=== PATIENT | female | born 1980 | race Caucasian/White ===

== ENCOUNTER 2018-06-13 09:07 | Emergency (ER) | payer MEDICAID ==
[~2018-06-13] VITALS: Ht 160 cm; Wt 67.7 kg
[~2018-06-13 09:07] MED LIST: PREN-129 PO
[2018-06-13] MEDS ORDERED: ibuprofen tablet 400 MG TABLET PO ONE (09:55)
[2018-06-13] MEDS ORDERED: LIDOcaine 1% w/epiNEPHrine 1:200,000 30ml vial IM ONE (09:55)
--- NOTE | 2018-06-13 10:30 | NUR ---
i called lab and notified that we have a draw for cbc, cmp.
[2018-06-13 10:43] LABS: BASOPHILS # (AUTO) 0.2 X10'3 (0-0.2); BASOPHILS % (AUTO) 1.4 % (0-1); EOSINOPHILS % (AUTO) 0.2 % (0-6); HEMATOCRIT 37.2 % (35.0-45.0); HEMOGLOBIN 12.4 g/dl (12.0-16.0); LYMPHOCYTES # (AUTO) 1.5 X10'3 (1.1-4.8); LYMPHOCYTES % (AUTO) 8.9 % (21-51); MEAN CORPUSCULAR HGB CONC 33.3 g/dL (33.0-36.5); MEAN CORPUSCULAR VOLUME 96.2 FL (78-98); MEAN PLATELET VOLUME 8.5 FL (7.4-10.4); MONOCYTES # (AUTO) 0.9 X10'3 (0-0.9); MONOCYTES % (AUTO) 5.2 % (2-12); NEUTROPHILS # (AUTO) 14.1 X10'3 (1.8-7.7); NEUTROPHILS % (AUTO) 84.3 % (42-75); PLATELET COUNT 263 X10'3 (140-440); RED BLOOD COUNT 3.87 X10'6 (4.20-5.60); RED CELL DISTRIBUTION WIDTH 13.6 % (11.5-14.5); WHITE BLOOD COUNT 16.7 X10'3 (4.5-11.0)
[2018-06-13 10:52] LABS: ALANINE AMINOTRANSFERASE 20 U/L (12-78); ALBUMIN 3.4 G/DL (3.4-5.0); ALBUMIN/GLOBULIN RATIO 1.1 (1.1-1.5); ALKALINE PHOSPHATASE 72 IU/L (46-116); ANION GAP 10 (8-16); ASPARTATE AMINO TRANSFERASE 14 U/L (10-37); BILIRUBIN,TOTAL 0.5 MG/DL (0.1-1.0); BLOOD UREA NITROGEN 7 MG/DL (7-18); BUN/CREATININE RATIO 8.9 (6.6-38.0); CALCIUM 8.8 MG/DL (8.5-10.1); CHLORIDE 104 MMOL/L (99-107); CREATININE 0.79 MG/DL (0.40-0.90); GLUCOSE 94 MG/DL (70-104); POTASSIUM 3.4 MMOL/L (3.5-5.1); SODIUM 140 MMOL/L (135-145); TOTAL CARBON DIOXIDE 26.2 MMOL/L (24-32); TOTAL PROTEIN 6.5 G/DL (6.4-8.2); eGFR 82 ML/MIN
[2018-06-13 11:56] LABS: URINE AMPHETAMINE SCREEN POSITIVE (Neg); URINE BARBITUATE SCREEN NEGATIVE (Neg); URINE BENZODIAZEPINES SCREEN NEGATIVE (Neg); URINE CANNABINOID SCREEN POSITIVE (Neg); URINE COCAINE SCREEN NEGATIVE (Neg); URINE METHADONE SCREEN NEGATIVE (Neg); URINE OPIATE SCREEN NEGATIVE (Neg); URINE PHENCYCLIDINE SCREEN NEGATIVE (Neg)
[2018-06-13] MEDS ORDERED: CEPH-572 PO (12:28)
[2018-06-13] MEDS ORDERED: SULF1TAB49 PO (12:28)
[2018-06-13 12:54] VITALS: BP 122/72
== END 2018-06-13 12:56 | disposition home or self-care (01) ==
LOC: ER 09:08
DX: S80.01XA Contusion of right knee, initial encounter (principal); L03.115 Cellulitis of right lower limb; L02.415 Cutaneous abscess of right lower limb; F12.90 Cannabis use, unspecified, uncomplicated; F15.90 Other stimulant use, unspecified, uncomplicated; Z88.5 Allergy status to narcotic agent; Z79.899 Other long term (current) drug therapy; X58.XXXA Exposure to other specified factors, initial encounter; Y93.89 Activity, other specified; Y92.89 Other specified places as the place of occurrence of the external cause; Y99.8 Other external cause status
CPT/HCPCS: 10060; 36415; 80053; 80305; 85025; 99284; J3490

== ENCOUNTER 2018-10-08 22:09 | Emergency (ER) | payer MEDICAID ==
[~2018-10-08] VITALS: Ht 160 cm; Wt 63.6 kg
[~2018-10-08 22:09] MED LIST changes: +CEPH500C5 PO
[2018-10-08 22:10] VITALS: BP 118/88
[2018-10-08] MEDS ORDERED: bacitracin 15gm ointment TP ONE (22:35)
[2018-10-08] MEDS ORDERED: clindamycin 150mg capsule PO ONE (22:35)
[2018-10-08] MEDS ORDERED: ibuprofen tablet 400 MG TABLET PO ONE (22:35)
[2018-10-08] MEDS ORDERED: CLIN150C8 PO (22:35)
== END 2018-10-08 23:04 | disposition home or self-care (01) ==
LOC: ER 22:09
DX: T24.201A Burn of second degree of unspecified site of right lower limb, except ankle and foot, initial encounter (principal); F12.90 Cannabis use, unspecified, uncomplicated; F15.90 Other stimulant use, unspecified, uncomplicated; Z88.5 Allergy status to narcotic agent; Z79.899 Other long term (current) drug therapy; X08.8XXA Exposure to other specified smoke, fire and flames, initial encounter; Y93.89 Activity, other specified; Y92.89 Other specified places as the place of occurrence of the external cause; Y99.8 Other external cause status
CPT/HCPCS: 16020; 99284

== ENCOUNTER 2019-01-11 00:01 | Emergency (ER) | payer MEDICAID ==
[~2019-01-11] VITALS: Ht 160 cm; Wt 56.8 kg
[~2019-01-11 00:01] MED LIST changes: +CLIN150C8 PO
[2019-01-11 01:20] VITALS: BP 136/81
--- NOTE | 2019-01-11 01:43 | NUR ---
PER SIDE STITCHER MARLEY, UNABLE TO DRAW BLOOD DUE TO PT BLOOD HEMOLYZING. ATTEMPTED 3 TIMES. MD MADE AWARE. NO NEW ORDERS. WILL CONTINUE TO MONITOR
[2019-01-11] MEDS ORDERED: BACDS PO (02:34)
== END 2019-01-11 02:42 | disposition home or self-care (01) ==
LOC: ER 00:02
DX: R19.04 Left lower quadrant abdominal swelling, mass and lump (principal); F17.210 Nicotine dependence, cigarettes, uncomplicated; F12.90 Cannabis use, unspecified, uncomplicated; F15.90 Other stimulant use, unspecified, uncomplicated; Z88.5 Allergy status to narcotic agent; Z79.899 Other long term (current) drug therapy
CPT/HCPCS: 74176; 99284

== ENCOUNTER 2019-11-02 02:10 | Inpatient (IN) | payer MEDICAID ==
[~2019-11-02] VITALS: Ht 160 cm; Wt 56.8 kg
[~2019-11-02 02:10] MED LIST changes: -CEPH500C5 PO
[2019-11-02] MEDS ORDERED: vancomycin/NS 1 GM ADD-VANTAGE 250 ML IV ONE (02:20)
[2019-11-02] MEDS ORDERED: TETanus/Pertussis (Acell)/Diphther VAC/PF (Tdap-Adult) 0.5ml syringe IMVAC ONE (02:20)
[2019-11-02] MEDS ORDERED: CefTRIAXone 2gm/D5W 50ml 50 ML IV ONE (02:20)
[2019-11-02] MEDS ORDERED: iohexol 300mg/ml 100ml inj. ONE (02:33)
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
[2019-11-02 03:13] LABS: BASOPHILS # (AUTO) 0.1 X10'3 (0-0.2); BASOPHILS % (AUTO) 0.6 % (0-1); EOSINOPHILS # (AUTO) 0.1 X10'3 (0-0.9); EOSINOPHILS % (AUTO) 0.3 % (0-6); HEMATOCRIT 36.2 % (35.0-45.0); HEMOGLOBIN 12.2 g/dl (12.0-16.0); LYMPHOCYTES # (AUTO) 3.1 X10'3 (1.1-4.8); LYMPHOCYTES % (AUTO) 17.9 % (21-51); MEAN CORPUSCULAR HEMOGLOBIN 32.3 PG (27.0-31.0); MEAN CORPUSCULAR HGB CONC 33.7 g/dL (33.0-36.5); MEAN CORPUSCULAR VOLUME 95.9 FL (78-98); MEAN PLATELET VOLUME 7.7 FL (7.4-10.4); MONOCYTES # (AUTO) 1.3 X10'3 (0-0.9); MONOCYTES % (AUTO) 7.7 % (2-12); NEUTROPHILS # (AUTO) 12.8 X10'3 (1.8-7.7); NEUTROPHILS % (AUTO) 73.5 % (42-75); PLATELET COUNT 248 X10'3 (140-440); RED BLOOD COUNT 3.77 X10'6 (4.20-5.60); WHITE BLOOD COUNT 17.5 X10'3 (4.5-11.0)
[2019-11-02 03:28] LABS: HCG SERUM QL NEGATIVE
[2019-11-02 03:32] LABS: ALANINE AMINOTRANSFERASE 25 U/L (12-78); ALBUMIN 3.2 G/DL (3.4-5.0); ALBUMIN/GLOBULIN RATIO 0.9 (1.1-1.5); ALKALINE PHOSPHATASE 92 IU/L (46-116); ANION GAP 3 (8-16); ASPARTATE AMINO TRANSFERASE 25 U/L (10-37); BILIRUBIN,TOTAL 0.4 MG/DL (0.1-1.0); BLOOD UREA NITROGEN 13 MG/DL (7-18); BUN/CREATININE RATIO 17.1 (6.6-38.0); CALCIUM 8.8 MG/DL (8.5-10.1); CHLORIDE 101 MMOL/L (99-107); CREATININE 0.76 MG/DL (0.40-0.90); GLUCOSE 120 MG/DL (70-104); MAGNESIUM 1.7 MG/DL (1.5-2.4); POTASSIUM 3.8 MMOL/L (3.5-5.1); SODIUM 135 MMOL/L (135-145); TOTAL CARBON DIOXIDE 31.4 MMOL/L (24-32); TOTAL PROTEIN 6.6 G/DL (6.4-8.2); eGFR 86 ML/MIN
[2019-11-02] MEDS ORDERED: acetaminophen 325mg tablet PO ONE (03:35)
[2019-11-02 04:08] LABS: CLARITY,URINE CLOUDY (Clear); COLOR,URINE YELLOW (Yellow); GLUCOSE, URINE NEGATIVE (Neg); KETONES,URINE NEGATIVE (Neg); LEUKOCYTE ESTERASE ,URINE NEGATIVE (Neg); NITRITES, URINE POSITIVE (Neg); OCCULT BLOOD,URINE LARGE (Neg); PH,URINE 6.5 (4.8-8.0); PROTEIN,URINE TRACE mg/dl (Neg)
[2019-11-02 04:18] LABS: UA COLLECTION TYPE CLN CATCH MIDSTREAM
[2019-11-02 04:19] LABS: BACTERIA,URINE 4+ /HPF (Neg); SQUAMOUS EPITHELIAL CELL,UR FEW /LPF (FEW); WBC,URINE 0-4 /HPF (0-4)
[2019-11-02] MEDS ORDERED: NO HOME MEDS (05:42)
--- NOTE | 2019-11-02 06:52 | NUR ---
Pt resting comfotably with eyes closed. When woken, pt states her pain is still 8/10.
[2019-11-02] MEDS ORDERED: potassium CL 10mEq/100ml bag 100 ML IV PRN ×2 (07:15)
[2019-11-02] MEDS ORDERED: magnesium 4gm in 100ml NS 100 ML IV PRN (07:15)
[2019-11-02] MEDS ORDERED: morphine 2 MG/ML inj. syringe IV PRN ×2 (07:15)
[2019-11-02] MEDS ORDERED: magnesium Cl slow-release 64mg tablet PO PRN (07:15)
[2019-11-02] MEDS ORDERED: magnesium hydroxide 30ml (MOM) UD suspension PO PRN (07:15)
[2019-11-02] MEDS ORDERED: acetaminophen 325mg tablet PO PRN ×2 (07:15)
[2019-11-02] MEDS ORDERED: magnesium 2GM in 50ml NS 50 ML IV PRN (07:15)
[2019-11-02] MEDS ORDERED: ondansetron/PF 4mg/2ml inj IV PRN (07:15)
[2019-11-02] MEDS ORDERED: potassium Cl 20 mEq SR tablet PO PRN ×2 (07:15)
[2019-11-02] MEDS ORDERED: mag hydrox/Alum hydrox/simeth 30ml oral suspension PO PRN (07:15)
[2019-11-02] MEDS ORDERED: HYDROcodone/acetaminophen 10/325mg tab PO PRN (07:15)
[2019-11-02] MEDS ORDERED: HYDROcodone/acetaminophen 5mg/325mg tablet PO PRN ×2 (07:15→09:25)
[2019-11-02] MEDS: K and/or MAG REPLACEMENT MC SCH ×2 (08:00→19:45)
--- NOTE | 2019-11-02 08:15 | NUR ---
Patient in room ED 6. I have received report from YOSELIN Rodgers and had the opportunity to ask questions and assume patient care. Anticipate pt arrival via gurney with no tele. RN to start agreed to give am meds prior to transfer.
[2019-11-02] MEDS: CefTRIAXone 2gm/D5W 50ml 50 ML IV SCH (08:19)
[2019-11-02] MEDS: heparin, porcine 5000 units/ml vial SQ SCH ×2 (08:20→19:47)
[2019-11-02] MEDS: normal saline 1000ml 1,000 ML IV SCH ×3 (08:20→19:42)
--- NOTE | 2019-11-02 08:45 | NUR ---
received pt [facility] ED. Pt sleepy, Dr Arellano at bedside for admission. I was asked to leave the room by Dr Arellano pending completion of her admission interview and exam.
[2019-11-02 08:50] VITALS: BP 134/80
[2019-11-02 11:00] VITALS: BP 142/89
[2019-11-02 13:18] VITALS: BP 135/72
[2019-11-02] MEDS: vancomycin/NS 1 GM ADD-VANTAGE 250 ML IV SCH (16:10)
[2019-11-02] MEDS: HYDROcodone/acetaminophen 10/325mg tab PO PRN (17:18)
[2019-11-02] MEDS ORDERED: LORazepam 2 mg/ml vial IV PRN (17:40)
[2019-11-02] MEDS ORDERED: LORazepam 0.5 MG tablet PO PRN (17:40)
[2019-11-02 18:00] VITALS: BP 127/85
--- NOTE | 2019-11-02 18:03 | NUR ---
Problems reprioritized. Patient report given, questions answered & plan of care reviewed with YOSELIN Lobo.
--- NOTE | 2019-11-02 18:39 | NUR ---
Patient in room IRVIN 348. I have received report from Irvin RN and had the opportunity to ask questions and assume patient care.
[2019-11-02 18:59] LABS: BASOPHILS % (AUTO) 0.2 % (0-1); EOSINOPHILS % (AUTO) 0.1 % (0-6); HEMATOCRIT 38.4 % (35.0-45.0); HEMOGLOBIN 12.9 g/dl (12.0-16.0); LYMPHOCYTES # (AUTO) 1.6 X10'3 (1.1-4.8); LYMPHOCYTES % (AUTO) 10.3 % (21-51); MEAN CORPUSCULAR HEMOGLOBIN 32.4 PG (27.0-31.0); MEAN CORPUSCULAR HGB CONC 33.5 g/dL (33.0-36.5); MEAN CORPUSCULAR VOLUME 96.7 FL (78-98); MEAN PLATELET VOLUME 8.4 FL (7.4-10.4); MONOCYTES # (AUTO) 0.9 X10'3 (0-0.9); MONOCYTES % (AUTO) 5.6 % (2-12); NEUTROPHILS # (AUTO) 12.8 X10'3 (1.8-7.7); NEUTROPHILS % (AUTO) 83.8 % (42-75); PLATELET COUNT 247 X10'3 (140-440); RED BLOOD COUNT 3.98 X10'6 (4.20-5.60); RED CELL DISTRIBUTION WIDTH 13.2 % (11.5-14.5); WHITE BLOOD COUNT 15.3 X10'3 (4.5-11.0)
[2019-11-02] MEDS: nicotine 14mg patch - 24hr TD SCH (19:44)
[2019-11-02] MEDS: lactobacillus rhamnosus 10,000 MMU CELLS/CAPSULE PO SCH (19:46)
[2019-11-02] MEDS ORDERED: temazepam 15mg capsule PO PRN (21:00)
[2019-11-03] VITALS: BP 139/83
--- NOTE | 2019-11-03 02:10 | NUR ---
Asked pt about belongings. pt had a knife, which was sent with security and cigarettes which were put by charge nurse in the drawer with pt sticker
[2019-11-03] MEDS: vancomycin/NS 1 GM ADD-VANTAGE 250 ML IV SCH ×2 (02:53→15:06)
[2019-11-03] MEDS: normal saline 1000ml 1,000 ML IV SCH ×2 (02:53→14:20)
[2019-11-03 05:32] LABS: BASOPHILS % (AUTO) 0.3 % (0-1); EOSINOPHILS # (AUTO) 0.1 X10'3 (0-0.9); EOSINOPHILS % (AUTO) 0.8 % (0-6); HEMATOCRIT 33.6 % (35.0-45.0); HEMOGLOBIN 11.2 g/dl (12.0-16.0); LYMPHOCYTES # (AUTO) 3.1 X10'3 (1.1-4.8); LYMPHOCYTES % (AUTO) 23.4 % (21-51); MEAN CORPUSCULAR HEMOGLOBIN 32.1 PG (27.0-31.0); MEAN CORPUSCULAR HGB CONC 33.3 g/dL (33.0-36.5); MEAN CORPUSCULAR VOLUME 96.2 FL (78-98); MEAN PLATELET VOLUME 8.5 FL (7.4-10.4); MONOCYTES # (AUTO) 0.9 X10'3 (0-0.9); MONOCYTES % (AUTO) 6.5 % (2-12); NEUTROPHILS # (AUTO) 9.3 X10'3 (1.8-7.7); PLATELET COUNT 222 X10'3 (140-440); RED BLOOD COUNT 3.49 X10'6 (4.20-5.60); RED CELL DISTRIBUTION WIDTH 12.9 % (11.5-14.5); WHITE BLOOD COUNT 13.4 X10'3 (4.5-11.0)
[2019-11-03 05:49] LABS: ALANINE AMINOTRANSFERASE 105 U/L (12-78); ALBUMIN 2.5 G/DL (3.4-5.0); ALBUMIN/GLOBULIN RATIO 0.8 (1.1-1.5); ALKALINE PHOSPHATASE 101 IU/L (46-116); ANION GAP 7 (8-16); ASPARTATE AMINO TRANSFERASE 84 U/L (10-37); BILIRUBIN,TOTAL 0.3 MG/DL (0.1-1.0); BLOOD UREA NITROGEN 10 MG/DL (7-18); BUN/CREATININE RATIO 14.3 (6.6-38.0); CALCIUM 8.2 MG/DL (8.5-10.1); CHLORIDE 104 MMOL/L (99-107); GLUCOSE 118 MG/DL (70-104); MAGNESIUM 1.7 MG/DL (1.5-2.4); POTASSIUM 3.2 MMOL/L (3.5-5.1); SODIUM 139 MMOL/L (135-145); TOTAL CARBON DIOXIDE 28.5 MMOL/L (24-32); TOTAL PROTEIN 5.8 G/DL (6.4-8.2); eGFR > 90 ML/MIN
--- NOTE | 2019-11-03 06:15 | NUR ---
Problems reprioritized. Patient report given, questions answered & plan of care reviewed with Laine WYATT.
--- NOTE | 2019-11-03 06:37 | NUR ---
Patient in room IRVIN 348. I have received report from YOSELIN Lobo and had the opportunity to ask questions and assume patient care.
--- NOTE | 2019-11-03 06:38 | NUR ---
Patient in room IRVIN 348. I have received report from Lashell WYATT and had the opportunity to ask questions and assume patient care.
[2019-11-03 07:00] VITALS: BP 135/81
[2019-11-03] MEDS: lactobacillus rhamnosus 10,000 MMU CELLS/CAPSULE PO SCH (07:14)
[2019-11-03] MEDS: heparin, porcine 5000 units/ml vial SQ SCH (07:15)
[2019-11-03] MEDS: nicotine 14mg patch - 24hr TD SCH (07:15)
[2019-11-03] MEDS: CefTRIAXone 2gm/D5W 50ml 50 ML IV SCH (07:16)
[2019-11-03] MEDS: HYDROcodone/acetaminophen 10/325mg tab PO PRN (07:16)
[2019-11-03] MEDS: K and/or MAG REPLACEMENT MC SCH (08:00)
[2019-11-03 11:37] VITALS: BP 118/75
--- NOTE | 2019-11-03 11:57 | NUR ---
Student documentation: I have reviewed all interventions, assessments performed and documented by Carmencita HULL for [facility]. Student Medication Administration: For all medication-pass' in the time frame of 3025-0972, all medications were reviewed, dispensed, administered and documented per hospital policy by Carmencita HULL for [facility].
[2019-11-03] MEDS ORDERED: VANCOMYCIN LEVEL IV ONE (14:30)
[2019-11-03 14:55] LABS: BASOPHILS % (AUTO) 0.4 % (0-1); EOSINOPHILS # (AUTO) 0.1 X10'3 (0-0.9); LYMPHOCYTES # (AUTO) 2.4 X10'3 (1.1-4.8); MEAN CORPUSCULAR VOLUME 97.3 FL (78-98); PLATELET COUNT 222 X10'3 (140-440)
[2019-11-03 14:57] LABS: EOSINOPHILS % (AUTO) 0.8 % (0-6); HEMATOCRIT 38.4 % (35.0-45.0); HEMOGLOBIN 12.9 g/dl (12.0-16.0); LYMPHOCYTES % (AUTO) 19.2 % (21-51); MEAN CORPUSCULAR HEMOGLOBIN 32.8 PG (27.0-31.0); MEAN CORPUSCULAR HGB CONC 33.7 g/dL (33.0-36.5); MEAN PLATELET VOLUME 8.6 FL (7.4-10.4); MONOCYTES # (AUTO) 0.7 X10'3 (0-0.9); MONOCYTES % (AUTO) 5.8 % (2-12); NEUTROPHILS # (AUTO) 9.4 X10'3 (1.8-7.7); NEUTROPHILS % (AUTO) 73.8 % (42-75); RED BLOOD COUNT 3.95 X10'6 (4.20-5.60); RED CELL DISTRIBUTION WIDTH 12.9 % (11.5-14.5); WHITE BLOOD COUNT 12.8 X10'3 (4.5-11.0)
[2019-11-03] MEDS ORDERED: OMEP20CA15 PO (15:41)
[2019-11-03] MEDS ORDERED: ACET-1008 PO (15:41)
[2019-11-03] MEDS ORDERED: IBUP-1985 PO (15:41)
[2019-11-03] MEDS ORDERED: DOXY-243 PO (15:41)
[2019-11-03] MEDS ORDERED: vancomycin/NS 1 GM ADD-VANTAGE 250 ML IV SCH (23:00)
[2019-11-04] MEDS ORDERED: VANCOMYCIN LEVEL IV ONE (14:30)
== END 2019-11-03 16:40 | disposition home or self-care (01) | DRG 383 ==
LOC: ER 02:10 → ED HOLD 07:12 → SUR 3N 08:50
PROVIDERS: ADMIT Internal Medicine; ATTEND Internal Medicine
PROC: 0H96XZX Drainage of Back Skin, External Approach, Diagnostic (ICD-10-PCS; principal; 2019-11-02)
DX: L02.31 Cutaneous abscess of buttock (principal); L03.317 Cellulitis of buttock; F17.210 Nicotine dependence, cigarettes, uncomplicated; F19.10 Other psychoactive substance abuse, uncomplicated; J45.909 Unspecified asthma, uncomplicated; N39.0 Urinary tract infection, site not specified; Z88.5 Allergy status to narcotic agent; Z98.891 History of uterine scar from previous surgery; B96.20 Unspecified Escherichia coli [E. coli] as the cause of diseases classified elsewhere
CPT/HCPCS: 10160; 36415; 36556; 74177; 76942; 80053; 80202; 81001; 83605; 83735; 84145; 84703; 85025; 87040; 87070; 87075; 87077; 87081; 87088; 87102; 87186; 90715; 96365; 96366; 96368; 97162; 99285; G0378; J0696; J1644; J3370; J7030; Q9967

== ENCOUNTER 2020-08-04 13:06 | Emergency (ER) | payer MEDICAID ==
[~2020-08-04] VITALS: Ht 157.5 cm; Wt 61.4 kg
[~2020-08-04 13:06] MED LIST changes: -CLIN150C8 PO; +IBUP-1985 PO; +OMEP20CA15 PO; -PREN-129 PO
[2020-08-04 13:43] VITALS: BP 147/92
--- NOTE | 2020-08-04 14:56 | NUR ---
PATIENT IS HERE FOR MEDICAL CLEARANCE AND REQUESTING COVID TEST FOR REHAB ADMISSION WITH [facility] OR EMPIRE.
== END 2020-08-04 16:01 | disposition home or self-care (01) ==
LOC: ER 13:08
DX: J45.909 Unspecified asthma, uncomplicated (principal); F12.90 Cannabis use, unspecified, uncomplicated; F15.90 Other stimulant use, unspecified, uncomplicated; Z98.891 History of uterine scar from previous surgery; Z88.8 Allergy status to other drugs, medicaments and biological substances; Z79.899 Other long term (current) drug therapy
CPT/HCPCS: 87635; 99283; C9803

== ENCOUNTER 2020-09-15 06:59 | Emergency (ER) | payer MEDICAID ==
[~2020-09-15] VITALS: Ht 160 cm; Wt 61.4 kg
[2020-09-15 09:30] VITALS: BP 179/100
[2020-09-15 12:37] LABS: URINE HCG NEGATIVE (NEG)
== END 2020-09-15 14:59 | disposition home or self-care (01) ==
LOC: ER 07:00
DX: O26.92 Pregnancy related conditions, unspecified, second trimester (principal); Z20.822 Contact with and (suspected) exposure to COVID-19; J45.909 Unspecified asthma, uncomplicated; F12.90 Cannabis use, unspecified, uncomplicated; F15.90 Other stimulant use, unspecified, uncomplicated; F11.90 Opioid use, unspecified, uncomplicated; Z3A.16 16 weeks gestation of pregnancy; Z98.890 Other specified postprocedural states; Z88.5 Allergy status to narcotic agent; Z79.899 Other long term (current) drug therapy
CPT/HCPCS: 81025; 87635; 99283; C9803

== ENCOUNTER 2021-01-22 20:48 | Emergency (ER) | payer MEDICAID | END 2021-01-23 01:53 | disposition left against medical advice (07) | LOC: ER 20:50 | DX: R19.7 Diarrhea, unspecified (principal); Z53.21 Procedure and treatment not carried out due to patient leaving prior to being seen by health care provider ==

== ENCOUNTER 2021-01-23 07:37 | Emergency (ER) | payer MEDICAID ==
[~2021-01-23] VITALS: Ht 157.5 cm; Wt 65.2 kg
[2021-01-23] MEDS ORDERED: normal saline 1000ML IV soln IVB ONE (08:30)
[2021-01-23 09:26] LABS: URINE HCG NEGATIVE (NEG)
[2021-01-23 09:29] LABS: CLARITY,URINE CLOUDY (Clear); COLOR,URINE YELLOW (Yellow); GLUCOSE, URINE NEGATIVE (Neg); KETONES,URINE TRACE mg/dl (Neg); LEUKOCYTE ESTERASE ,URINE SMALL (Neg); NITRITES, URINE POSITIVE (Neg); OCCULT BLOOD,URINE TRACE-LYSED (Neg); PROTEIN,URINE 30 mg/dl (Neg); UROBILINOGEN,URINE 0.2 E.U/dL (0.2-1.0)
[2021-01-23 09:36] LABS: UA COLLECTION TYPE CLN CATCH MIDSTREAM
[2021-01-23 09:41] LABS: ALANINE AMINOTRANSFERASE 20 U/L (12-78); ALBUMIN 2.9 G/DL (3.4-5.0); ALBUMIN/GLOBULIN RATIO 0.9 (1.1-1.5); ALKALINE PHOSPHATASE 83 IU/L (46-116); ANION GAP 11 (8-16); ASPARTATE AMINO TRANSFERASE 20 U/L (10-37); BILIRUBIN,TOTAL 0.2 MG/DL (0.1-1.0); BLOOD UREA NITROGEN 13 MG/DL (7-18); BUN/CREATININE RATIO 20.6 (6.6-38.0); CALCIUM 8.3 MG/DL (8.5-10.1); CHLORIDE 104 MMOL/L (99-107); CREATININE 0.63 MG/DL (0.40-0.90); GLUCOSE 112 MG/DL (70-104); LIPASE 55 U/L (73-393); SODIUM 139 MMOL/L (135-145); TOTAL CARBON DIOXIDE 23.6 MMOL/L (24-32); TOTAL PROTEIN 6.3 G/DL (6.4-8.2); eGFR > 90 ML/MIN
[2021-01-23 09:42] LABS: BACTERIA,URINE 4+ /HPF (Neg); MUCUS STRANDS FEW /LPF (Neg); RBC,URINE 0-2 /HPF (0-2)
[2021-01-23 09:43] LABS: SQUAMOUS EPITHELIAL CELL,UR MANY /LPF (FEW)
[2021-01-23 09:47] LABS: POTASSIUM 3.3 MMOL/L (3.5-5.1)
[2021-01-23 10:26] LABS: BASOPHILS % (AUTO) 0.3 % (0-1); EOSINOPHILS # (AUTO) 0.4 X10'3 (0-0.9); EOSINOPHILS % (AUTO) 4.5 % (0-6); HEMATOCRIT 33.9 % (35.0-45.0); HEMOGLOBIN 11.6 g/dl (12.0-16.0); LYMPHOCYTES # (AUTO) 2.9 X10'3 (1.1-4.8); MEAN CORPUSCULAR HEMOGLOBIN 32.5 PG (27.0-31.0); MEAN CORPUSCULAR HGB CONC 34.3 g/dL (33.0-36.5); MEAN CORPUSCULAR VOLUME 94.5 FL (78-98); MEAN PLATELET VOLUME 7.7 FL (7.4-10.4); MONOCYTES # (AUTO) 1.1 X10'3 (0-0.9); MONOCYTES % (AUTO) 12.6 % (2-12); NEUTROPHILS # (AUTO) 4.6 X10'3 (1.8-7.7); NEUTROPHILS % (AUTO) 50.6 % (42-75); PLATELET COUNT 260 X10'3 (140-440); RED BLOOD COUNT 3.58 X10'6 (4.20-5.60); RED CELL DISTRIBUTION WIDTH 13.5 % (11.5-14.5)
[2021-01-23 12:57] VITALS: BP 126/87
== END 2021-01-23 15:33 | disposition home or self-care (01) ==
LOC: ER 07:38
DX: K43.9 Ventral hernia without obstruction or gangrene (principal); R10.84 Generalized abdominal pain; R19.7 Diarrhea, unspecified; J45.909 Unspecified asthma, uncomplicated; F12.90 Cannabis use, unspecified, uncomplicated; F15.90 Other stimulant use, unspecified, uncomplicated; F11.90 Opioid use, unspecified, uncomplicated; Z98.890 Other specified postprocedural states; Z88.5 Allergy status to narcotic agent; Z79.899 Other long term (current) drug therapy
CPT/HCPCS: 36415; 74176; 80053; 81001; 81025; 83690; 85025; 96360; 96361; 99284; J7030

== ENCOUNTER 2021-02-11 09:49 | Day surgery (SDC) | payer MEDICAID ==
[2021-02-10 14:31] LABS: EOSINOPHILS # (AUTO) 0.4 X10'3 (0-0.9); LYMPHOCYTES # (AUTO) 3.1 X10'3 (1.1-4.8); MEAN CORPUSCULAR HGB CONC 33.7 g/dL (33.0-36.5); MONOCYTES # (AUTO) 0.6 X10'3 (0-0.9); NEUTROPHILS # (AUTO) 1.5 X10'3 (1.8-7.7); RED BLOOD COUNT 4.39 X10'6 (4.20-5.60)
[2021-02-10 14:33] LABS: BASOPHILS % (AUTO) 0.8 % (0-1); EOSINOPHILS % (AUTO) 7.1 % (0-6); LYMPHOCYTES % (AUTO) 53.9 % (21-51); MEAN CORPUSCULAR VOLUME 95.1 FL (78-98); MEAN PLATELET VOLUME 7.6 FL (7.4-10.4); MONOCYTES % (AUTO) 11.3 % (2-12); NEUTROPHILS % (AUTO) 26.9 % (42-75); PRE OP HEMATOCRIT 41.7 % (35.0-45.0); PRE OP PLATELET COUNT 381 X10'3 (140-440); RED CELL DISTRIBUTION WIDTH 14.1 % (11.5-14.5)
[2021-02-10 14:34] LABS: CLARITY,URINE CLOUDY (Clear); COLOR,URINE YELLOW (Yellow); GLUCOSE, URINE NEGATIVE (Neg); KETONES,URINE NEGATIVE (Neg); LEUKOCYTE ESTERASE ,URINE NEGATIVE (Neg); NITRITES, URINE POSITIVE (Neg); OCCULT BLOOD,URINE NEGATIVE (Neg); PROTEIN,URINE NEGATIVE (Neg); UROBILINOGEN,URINE 0.2 E.U/dL (0.2-1.0)
[2021-02-10 14:44] LABS: HCG SERUM QL NEGATIVE
[2021-02-10 14:46] LABS: ALBUMIN 3.7 G/DL (3.4-5.0); ALKALINE PHOSPHATASE 85 IU/L (46-116); BLOOD UREA NITROGEN 25 MG/DL (7-18); BUN/CREATININE RATIO 22.9 (6.6-38.0); CALCIUM 9.2 MG/DL (8.5-10.1); CHLORIDE 103 MMOL/L (99-107); CREATININE 1.09 MG/DL (0.40-0.90); PRE OP ALT 25 U/L (30-65); PRE OP ANION GAP 7 (8-16); PRE OP AST 21 U/L (10-37); PRE OP BILIRUB, TOTAL 0.3 MG/DL (0.0-1.0); PRE OP GLUCOSE 80 MG/DL (70-104); PRE OP POTASSIUM 4.3 MMOL/L (3.4-5.1); PRE OP SODIUM 140 MMOL/L (135-145); TOTAL CARBON DIOXIDE 29.6 MMOL/L (24-32); TOTAL PROTEIN 7.5 G/DL (6.4-8.2); eGFR 56 ML/MIN
[2021-02-10 15:02] LABS: UA COLLECTION TYPE CLN CATCH MIDSTREAM
[2021-02-10 15:14] LABS: BACTERIA,URINE 4+ /HPF (Neg)
[2021-02-10 15:15] LABS: HYALINE CASTS 0-3 /LPF (NEGATIVE)
[2021-02-10 15:23] LABS: SQUAMOUS EPITHELIAL CELL,UR MANY /LPF (FEW)
[2021-02-10 15:24] LABS: RBC,URINE 0-2 /HPF (0-2)
[2021-02-10 15:45] LABS: TOTAL CELLS COUNTED 100
[2021-02-10 15:46] LABS: PLATELET ESTIMATE NORMAL
[~2021-02-11] VITALS: Ht 160 cm; Wt 62.7 kg
[2021-02-11] VITALS (11 sets, daily range): BP systolic 125–166; BP diastolic 83–106
[~2021-02-11 09:49] MED LIST changes: +BUPIVAcaine/PF 2.5 mg/ml (0.25%) 30ml vial ONE; -IBUP-1985 PO; +NO HOME MEDS; -OMEP20CA15 PO; +cefazolin/dext.iso 2gm/50ml IV ONE; +famotidine 20mg tablet PO ONE; +ringers solution, lacted 1,000 ML IV SCH
[2021-02-11] MEDS ORDERED: sevoflurane 250ml liquid IH ONE (10:02)
[2021-02-11] MEDS ORDERED: ondansetron/PF 4mg/2ml inj ONE (10:02)
[2021-02-11] MEDS ORDERED: neostigmine methylsulfate 1 MG/ML 10ml vial ONE (10:02)
[2021-02-11] MEDS ORDERED: glycopyrrolate 0.2mg/ml inj ONE (10:02)
[2021-02-11] MEDS ORDERED: midazolam 1 mg/ML 2ml injection ONE (10:12)
[2021-02-11] MEDS ORDERED: fentaNYL /PF 50mcg/ml 5ml ampule ONE (10:12)
[2021-02-11] MEDS ORDERED: rocuronium 10mg/ml inj IV ONE (10:13)
[2021-02-11] MEDS ORDERED: propofol inj 20 ML IV ONE (11:38)
[2021-02-11] MEDS ORDERED: dexamethasone sod phosphate 4mg/ml inj. ONE (11:38)
[2021-02-11] MEDS ORDERED: LIDOcaine 2% (20mg/ml) 5ml vial ONE (11:38)
--- NOTE | 2021-02-11 11:52 | NUR ---
Received from OR via , accompanied by Anesthesiologist DR CABAN and report given by Anesthesiolgist. PT PRESENTS WITH 22G LEFT FOREARM, ABD DRESSING DRY AND INTACT, VSS Addendum: 02/11/21 at 1201 by Laura Rapp RN, RN Amended: Links added.
[2021-02-11] MEDS ORDERED: HYDROcodone/acetaminophen 5mg/325mg tablet PO ONE (13:00)
--- NOTE | 2021-02-11 13:22 | NUR ---
PT HAS NET ALL DC CRITERIA, VSS. DC INSTRUCTIONS REVIEWED WITH PT, PT VERBALIZED UNDERSTANDING WITH NO FURTHER QUESTIONS AT THIS TIME. PT WHEELED OUT TO PRIVATE VEHICLE WHERE WAS TAKING PT HOME. Addendum: 02/11/21 at 1407 by Laura Rapp RN, RN Amended: Links added.
== END 2021-02-11 13:22 | disposition home or self-care (01) ==
LOC: PAS 09:49
PROVIDERS: ATTEND Surgery
DX: K43.9 Ventral hernia without obstruction or gangrene (principal); K66.0 Peritoneal adhesions (postprocedural) (postinfection); J45.909 Unspecified asthma, uncomplicated; F12.90 Cannabis use, unspecified, uncomplicated; F15.90 Other stimulant use, unspecified, uncomplicated; F11.90 Opioid use, unspecified, uncomplicated; F17.210 Nicotine dependence, cigarettes, uncomplicated; Z88.5 Allergy status to narcotic agent; Z79.899 Other long term (current) drug therapy; Z20.822 Contact with and (suspected) exposure to COVID-19
CPT/HCPCS: 49652; 80053; 81001; 82948; 84703; 85025; 87635; C1713; C1781; C9803; J0690; J1100; J2250; J2405; J2704; J2710; J3010; J3490; J7030; J7120; Z7506; Z7508; Z7512; 85007; A4215; A4618; A7000

== ENCOUNTER 2021-09-17 19:40 | Emergency (ER) | payer MEDICAID ==
[~2021-09-17] VITALS: Ht 160 cm; Wt 63.6 kg
[~2021-09-17 19:40] MED LIST changes: -BUPIVAcaine/PF 2.5 mg/ml (0.25%) 30ml vial ONE; -cefazolin/dext.iso 2gm/50ml IV ONE; -famotidine 20mg tablet PO ONE; -ringers solution, lacted 1,000 ML IV SCH
[2021-09-17 20:42] LABS: BASOPHILS % (AUTO) 0.6 % (0-1); EOSINOPHILS # (AUTO) 0.1 X10'3 (0-0.9); EOSINOPHILS % (AUTO) 2.1 % (0-6); HEMATOCRIT 40.6 % (35.0-45.0); HEMOGLOBIN 13.3 g/dl (12.0-16.0); LYMPHOCYTES # (AUTO) 1.7 X10'3 (1.1-4.8); MEAN CORPUSCULAR HEMOGLOBIN 31.9 PG (27.0-31.0); MEAN CORPUSCULAR HGB CONC 32.7 g/dL (33.0-36.5); MEAN CORPUSCULAR VOLUME 97.7 FL (78-98); MEAN PLATELET VOLUME 8.1 FL (7.4-10.4); MONOCYTES # (AUTO) 0.5 X10'3 (0-0.9); MONOCYTES % (AUTO) 9.2 % (2-12); NEUTROPHILS # (AUTO) 2.7 X10'3 (1.8-7.7); NEUTROPHILS % (AUTO) 54.1 % (42-75); PLATELET COUNT 206 X10'3 (140-440); RED BLOOD COUNT 4.16 X10'6 (4.20-5.60)
[2021-09-17 20:56] LABS: ALANINE AMINOTRANSFERASE 19 U/L (12-78); ALBUMIN 3.5 G/DL (3.4-5.0); ALKALINE PHOSPHATASE 59 IU/L (46-116); ANION GAP 9 (8-16); ASPARTATE AMINO TRANSFERASE 19 U/L (10-37); BILIRUBIN,TOTAL 0.4 MG/DL (0.1-1.0); BLOOD UREA NITROGEN 10 MG/DL (7-18); BUN/CREATININE RATIO 12.7 (6.6-38.0); CALCIUM 8.7 MG/DL (8.5-10.1); CHLORIDE 104 MMOL/L (99-107); CREATININE 0.79 MG/DL (0.40-0.90); GLUCOSE 87 MG/DL (70-104); POTASSIUM 3.9 MMOL/L (3.5-5.1); SODIUM 144 MMOL/L (135-145); TOTAL CARBON DIOXIDE 30.9 MMOL/L (24-32); TOTAL PROTEIN 6.9 G/DL (6.4-8.2); eGFR 81 ML/MIN
[2021-09-17 21:45] VITALS: BP 158/86
[2021-09-17] MEDS ORDERED: ketorolac trometh inj. 60 MG/2 ML VIAL IM ONE (22:35)
[2021-09-17 23:55] LABS: CLARITY,URINE CLEAR (Clear); COLOR,URINE YELLOW (Yellow); GLUCOSE, URINE NEGATIVE (Neg); KETONES,URINE NEGATIVE (Neg); LEUKOCYTE ESTERASE ,URINE NEGATIVE (Neg); NITRITES, URINE POSITIVE (Neg); OCCULT BLOOD,URINE NEGATIVE (Neg); PROTEIN,URINE NEGATIVE (Neg)
[2021-09-17 23:56] LABS: UA COLLECTION TYPE NON-SPECIFIED
[2021-09-17 23:57] LABS: URINE HCG NEGATIVE (NEG)
[2021-09-18] LABS: WBC,URINE 20-30 /HPF (0-4)
[2021-09-18 00:01] LABS: BACTERIA,URINE 4+ /HPF (Neg); RBC,URINE NONE SEEN /HPF (0-2); SQUAMOUS EPITHELIAL CELL,UR NONE SEEN /LPF (FEW); WBC CLUMPS,URINE MODERATE /HPF (NEGATIVE)
[2021-09-18 00:09] LABS: URINE AMPHETAMINE SCREEN POSITIVE (Neg); URINE BARBITUATE SCREEN NEGATIVE (Neg); URINE BENZODIAZEPINES SCREEN NEGATIVE (Neg); URINE CANNABINOID SCREEN POSITIVE (Neg); URINE COCAINE SCREEN NEGATIVE (Neg); URINE METHADONE SCREEN NEGATIVE (Neg); URINE PHENCYCLIDINE SCREEN NEGATIVE (Neg)
[2021-09-18] MEDS ORDERED: CEPH-585 PO (00:31)
== END 2021-09-18 00:42 | disposition home or self-care (01) ==
LOC: ER 19:41
DX: R60.0 Localized edema (principal); N39.0 Urinary tract infection, site not specified; F12.10 Cannabis abuse, uncomplicated; F15.10 Other stimulant abuse, uncomplicated; J45.909 Unspecified asthma, uncomplicated; Z88.5 Allergy status to narcotic agent; Z79.2 Long term (current) use of antibiotics
CPT/HCPCS: 36415; 71045; 80053; 80305; 81001; 81025; 83880; 84484; 85025; 87077; 87088; 87186; 93005; 96372; 99285; J1885

== ENCOUNTER 2021-10-22 19:14 | Emergency (ER) | payer MEDICAID ==
[~2021-10-22] VITALS: Ht 160 cm; Wt 63.0 kg
[~2021-10-22 19:14] MED LIST changes: +CEPH-585 PO
[2021-10-22 19:44] VITALS: BP 137/88
== END 2021-10-22 21:28 | disposition home or self-care (01) ==
LOC: ER 19:14
DX: H00.015 Hordeolum externum left lower eyelid (principal); J45.909 Unspecified asthma, uncomplicated; F17.200 Nicotine dependence, unspecified, uncomplicated; F12.90 Cannabis use, unspecified, uncomplicated; F15.20 Other stimulant dependence, uncomplicated; F11.90 Opioid use, unspecified, uncomplicated; Z88.5 Allergy status to narcotic agent
CPT/HCPCS: 99282

== ENCOUNTER 2021-12-27 19:59 | Emergency (ER) | payer MEDICAID ==
[~2021-12-27] VITALS: Ht 160 cm; Wt 66.4 kg
[2021-12-27] MEDS ORDERED: AMOX-117 PO (20:49)
[2021-12-27] MEDS ORDERED: IBUP-1986 PO (20:49)
[2021-12-27] MEDS ORDERED: amox tr/potassium clavulanate 875/125mg TAB PO ONE (20:50)
[2021-12-27] MEDS ORDERED: ibuprofen tablet 400 MG TABLET PO ONE (20:50)
[2021-12-27 21:04] VITALS: BP 134/78
== END 2021-12-27 21:07 | disposition home or self-care (01) ==
LOC: ER 20:00
DX: K08.89 Other specified disorders of teeth and supporting structures (principal); J45.909 Unspecified asthma, uncomplicated; F12.90 Cannabis use, unspecified, uncomplicated; F15.20 Other stimulant dependence, uncomplicated; F19.10 Other psychoactive substance abuse, uncomplicated; Z88.5 Allergy status to narcotic agent
CPT/HCPCS: 99283

== ENCOUNTER 2022-01-09 11:01 | Emergency (ER) | payer MEDICAID ==
[~2022-01-09] VITALS: Ht 162.6 cm; Wt 68.2 kg
[~2022-01-09 11:01] MED LIST changes: +IBUP-1986 PO
[2022-01-09 11:42] VITALS: BP 153/89
[2022-01-09] MEDS ORDERED: amox tr/potassium clavulanate 875/125mg TAB PO ONE (15:20)
[2022-01-09] MEDS ORDERED: LIDOcaine 1% W/epiNEPHrine 1:100,000 20ml vial SQ ONE (15:25)
[2022-01-09] MEDS ORDERED: LIDOcaine 1% w/EPI 1:100,000 30ml vial (MDV) IJ ONE ×2 (15:30)
[2022-01-09] MEDS ORDERED: AMOX-117 PO (15:43)
== END 2022-01-09 16:12 | disposition home or self-care (01) ==
LOC: ER 11:02
DX: S01.03XA Puncture wound without foreign body of scalp, initial encounter (principal); J45.909 Unspecified asthma, uncomplicated; F12.90 Cannabis use, unspecified, uncomplicated; F15.90 Other stimulant use, unspecified, uncomplicated; F11.90 Opioid use, unspecified, uncomplicated; F19.90 Other psychoactive substance use, unspecified, uncomplicated; Z98.890 Other specified postprocedural states; Z88.5 Allergy status to narcotic agent; Z79.2 Long term (current) use of antibiotics; Z79.899 Other long term (current) drug therapy; W54.0XXA Bitten by dog, initial encounter; Y93.89 Activity, other specified; Y92.89 Other specified places as the place of occurrence of the external cause; Y99.8 Other external cause status
CPT/HCPCS: 99283; A6449

== ENCOUNTER 2022-06-21 18:30 | Emergency (ER) | payer MEDICAID ==
[~2022-06-21] VITALS: Ht 157.5 cm; Wt 61.4 kg
[2022-06-21] MEDS ORDERED: sulfamethoxazole/trimethoprim DS (800/160mg) tablet PO ONE ×2 (19:40→22:05)
[2022-06-21] MEDS ORDERED: normal saline 1000ML IV soln IV ONE (19:40)
[2022-06-21] MEDS ORDERED: piperacillin/tazo 3.375gm/50ml 50 ML IV ONE (19:40)
[2022-06-21] MEDS ORDERED: LIDOcaine 1% W/epiNEPHrine 1:100,000 20ml vial SQ ONE (21:05)
--- NOTE | 2022-06-21 21:20 | NUR ---
LABS COLLECTED AT THIS TIME BY DRY HOUSE WORKER TY; MULTIPLE ATTEMPTS MADE BY THIS RN AND ADDITIONAL ED NURSING AND EMT STAFF, INCLUDING US GUIDED IV ATTEMPTS BY CERTIFIED STAFF, PRIOR TO LAB COLLECTION; MD VALENCIA AWARE OF INABILITY TO ESTABLISH IV ACCESS
[2022-06-21 21:30] LABS: BASOPHILS % (AUTO) 0.5 % (0-1); EOSINOPHILS # (AUTO) 0.1 X10'3 (0-0.9); EOSINOPHILS % (AUTO) 0.9 % (0-6); HEMATOCRIT 34.4 % (35.0-45.0); HEMOGLOBIN 11.7 g/dl (12.0-16.0); LYMPHOCYTES # (AUTO) 2.7 X10'3 (1.1-4.8); LYMPHOCYTES % (AUTO) 25.5 % (21-51); MEAN CORPUSCULAR HEMOGLOBIN 32.7 PG (27.0-31.0); MEAN CORPUSCULAR HGB CONC 34.2 g/dL (33.0-36.5); MEAN CORPUSCULAR VOLUME 95.8 FL (78-98); MEAN PLATELET VOLUME 7.1 FL (7.4-10.4); MONOCYTES % (AUTO) 9.9 % (2-12); NEUTROPHILS # (AUTO) 6.6 X10'3 (1.8-7.7); NEUTROPHILS % (AUTO) 63.2 % (42-75); PLATELET COUNT 280 X10'3 (140-440); RED BLOOD COUNT 3.59 X10'6 (4.20-5.60); RED CELL DISTRIBUTION WIDTH 13.6 % (11.5-14.5); WHITE BLOOD COUNT 10.4 X10'3 (4.5-11.0)
[2022-06-21 21:43] LABS: ALANINE AMINOTRANSFERASE 42 U/L (12-78); ALBUMIN 3.5 G/DL (3.4-5.0); ALBUMIN/GLOBULIN RATIO 1.1 (1.1-1.5); ALKALINE PHOSPHATASE 113 IU/L (46-116); ANION GAP 8 (8-16); ASPARTATE AMINO TRANSFERASE 31 U/L (10-37); BILIRUBIN,TOTAL 0.2 MG/DL (0.1-1.0); BLOOD UREA NITROGEN 19 MG/DL (7-18); BUN/CREATININE RATIO 23.2 (10.0-20.0); CALCIUM 8.9 MG/DL (8.5-10.1); CHLORIDE 103 MMOL/L (99-107); CREATININE 0.82 MG/DL (0.40-0.90); GLUCOSE 95 MG/DL (70-104); POTASSIUM 4.1 MMOL/L (3.5-5.1); SODIUM 139 MMOL/L (135-145); TOTAL CARBON DIOXIDE 27.8 MMOL/L (24-32); TOTAL PROTEIN 6.8 G/DL (6.4-8.2); eGFR 77 ML/MIN
[2022-06-21] MEDS ORDERED: HYDROcodone/acetaminophen 10/325mg tab PO ONE (21:55)
[2022-06-21] MEDS ORDERED: amox tr/potassium clavulanate 875/125mg TAB PO ONE (22:05)
[2022-06-21] MEDS ORDERED: AMOX-117 PO (22:15)
[2022-06-21] MEDS ORDERED: SULF1TAB45 PO (22:15)
[2022-06-21] MEDS ORDERED: HYDR-3973 PO (22:15)
[2022-06-21 22:16] VITALS: BP 134/87
== END 2022-06-21 22:59 | disposition home or self-care (01) ==
LOC: ER 18:31
DX: L02.412 Cutaneous abscess of left axilla (principal); J45.909 Unspecified asthma, uncomplicated; F12.10 Cannabis abuse, uncomplicated; F15.10 Other stimulant abuse, uncomplicated; F11.10 Opioid abuse, uncomplicated; Z88.5 Allergy status to narcotic agent; Z79.899 Other long term (current) drug therapy; Z79.1 Long term (current) use of non-steroidal anti-inflammatories (NSAID); Z79.2 Long term (current) use of antibiotics
CPT/HCPCS: 10060; 36415; 80053; 83605; 85025; 87040; 99284; J7030; A6449

== ENCOUNTER 2023-04-01 19:53 | Emergency (ER) | payer MEDICAID ==
[~2023-04-01] VITALS: Ht 160 cm; Wt 60.0 kg
[~2023-04-01 19:53] MED LIST changes: -CEPH-585 PO; +CYCL-1 PO; +OXYC-145 PO
[2023-04-01 20:11] VITALS: BP 136/81; PULSE 100; RESP 16; TEMP 98.8; O2SAT 100
[2023-04-01] MEDS ORDERED: SULF1TAB49 PO (21:04)
[2023-04-01] MEDS ORDERED: CEPH-585 PO (21:04)
== END 2023-04-01 21:12 | disposition home or self-care (01) ==
LOC: ER 19:53
DX: L03.811 Cellulitis of head [any part, except face] (principal); J45.909 Unspecified asthma, uncomplicated; F12.90 Cannabis use, unspecified, uncomplicated; F15.90 Other stimulant use, unspecified, uncomplicated; Z88.5 Allergy status to narcotic agent; Z79.1 Long term (current) use of non-steroidal anti-inflammatories (NSAID); Z79.899 Other long term (current) drug therapy; Z98.890 Other specified postprocedural states
CPT/HCPCS: 99283

== ENCOUNTER 2024-07-16 18:24 | Emergency (ER) | payer MEDICAID ==
[~2024-07-16] VITALS: Ht 160 cm; Wt 74.0 kg
[2024-07-16 19:06] LABS: BILIRUBIN,URINE SMALL (Neg); CLARITY,URINE SLIGHTLY CLOUDY (Clear); COLOR,URINE YELLOW (Yellow); GLUCOSE, URINE NEGATIVE (Neg); KETONES,URINE TRACE mg/dl (Neg); LEUKOCYTE ESTERASE ,URINE TRACE (Neg); NITRITES, URINE NEGATIVE (Neg); OCCULT BLOOD,URINE NEGATIVE (Neg); PROTEIN,URINE 30 mg/dl (Neg)
[2024-07-16 19:07] LABS: URINE HCG POSITIVE (NEG)
[2024-07-16 19:14] LABS: UA COLLECTION TYPE CLN CATCH MIDSTREAM
[2024-07-16 19:18] LABS: BACTERIA,URINE 1+ /HPF (Neg); CAL OXALATE CRYSTALS 2+ /HPF (NEGATIVE); RBC,URINE 0-2 /HPF (0-2); SQUAMOUS EPITHELIAL CELL,UR MODERATE /LPF (FEW); WBC,URINE 20-30 /HPF (0-4)
[2024-07-16] MEDS ORDERED: CEPH-585 PO (20:09)
--- NOTE | 2024-07-16 20:10 | Physician Documentation ---
History of Present Illness General Chief Complaint: See Chief Complaint Stated Complaint: TEST Time Seen by MD: 19:05 Primary Medical Doctor: None History of Present Illness Initial Comments This is a 44-year-old female who presents requesting a test, patient reports last menstrual period was proximally mid April. Patient reports no acute symptoms or concerns. Medication Reconciliation Allergies: Coded Allergies: codeine (Verified Allergy, Unknown, 04/01/23) Scheduled Cephalexin*Monohydrate* (Keflex*), 1 CAP PO Q12H Cyclobenzaprine* (Cyclobenzaprine*), 1 TAB PO Q8H Ibuprofen (Ibuprofen), 1 TAB PO Q8H Scheduled PRN Oxycodone HCl/Acetaminophen (Percocet 5-325 mg Tablet), 1 TAB PO TID PRN PRN for fracture Miscellaneous Medications Home Med List (No Home Medications), (Reported) Past Medical History Past Medical History: Asthma, *INFECTIOUS DZ* Past Surgical History: Smoking: Cigarettes Alcohol Use: None Drug Use: marijuana, methamphetamine, heroin, other Lives In: Home Review of Systems ROS As stated above in the HPI, otherwise all systems are reviewed and negative. Physical Exam Physical Exam Vital Signs: Temperature: 97.8, Heart Rate: 112, Respiratory Rate: 16, BP: 126/88, Pulse Oximetry: 100, Weight: 74.000 Oxygen Flow Rate: 0 Physical Exam VITALS: Reviewed and as above. GENERAL: Alert, nontoxic appearing, no apparent distress. RESPIRATORY: No increased work of breathing, no respiratory distress, speaking in full clear sentences BACK: No CVA tenderness Progress Results/Orders Results/Orders Completed Orders - FOX ANTONIO Cephalexin Capsule (Keflex Capsule) (07/16/24 20:15) Medications Received in ER Medications (Trade) Dose Ordered Sig/Nestor Route PRN Reason Start Time Stop Time Status Last Admin Dose Admin (Keflex capsule) 500 mg ONCE ONCE PO 07/16/24 20:15 07/16/24 20:16 DC 07/16/24 20:15 500 MG Vital Signs 07/16/24 07/16/24 18:30 20:19 Temp 97.8 98.6 Pulse 112 99 Resp 16 20 B/P (MAP) 126/88 128/84 Pulse Ox 100 99 O2 Flow Rate 0 Laboratory Tests Test 07/16/24 18:32 Urine Specimen Description Cln catch midstream Urine Color Yellow Urine Clarity Slightly cloudy Urine pH 6.0 Urine Specific [place] 1.025 Urine Protein 30 H Urine Glucose (UA) Negative Urine Ketones Trace H Urine Occult Blood Negative Urine Nitrite Negative Urine Bilirubin Small Urine Urobilinogen 2.0 H Urine Leukocyte Esterase Trace H Urine RBC 0-2 Urine WBC 20-30 H Urine Squamous Epithelial Cells Moderate Urine Calcium Oxalate Crystals 2+ Urine Bacteria 1+ Urine Culture Indicated Indicated Volume Urine Centrifuged 10 ml Urine HCG, Qualitative Positive Urine Comment Microbiology Date/Time Source Procedure Growth Status 07/16/24 19:19 Urine Clean Catch Midstream Urine Culture - Preliminary Culture received. Resulted Medical Decision Making Findings This 44-year-old female presented requesting test after last menstrual period mid April, test was positive. Urinalysis demonstrated evidence of asymptomatic bacteriuria therefore antibiotics prescribed. Patient reported no acute symptoms or concerns and was otherwise well-appearing with a benign physical exam and is appropriate for outpatient follow up. Patient instructed to follow up with OB provider for care and given return to care precautions which patient verbalized understanding of. Differential Diagnosis Pyelonephritis, sepsis, ectopic , Departure Disposition: HOME / SELF CARE / HOMELESS Impression: Primary Impression: Positive test Additional Impression: UTI (urinary tract infection) Qualified Codes: N39.0 - Urinary tract infection, site not specified Condition: Improved Additional Instructions: Your test was positive. Your urine test showed some evidence of urinary tract infection, please take the antibiotics as prescribed for the next five days, follow up in the next few days with your primary care provider and/or OB provider. Please return to the emergency department for any new or worsening concerning symptoms. Referrals: NO PRIMARY CARE PROVIDER (PCP) Prescriptions Cephalexin*Monohydrate* (Keflex*) 500 Mg Capsule 1 CAP PO Q12H for 5 Days, #10 CAP Prov: FOX ANTONIO 07/16/24 Education Educated: Patient Educated regarding: diagnosis, treatment, prognosis, need for follow up Signature Scribe Signature: No scribe Attestation: The note accurately reflects work and decisions made by me.CHASTITY Peterson 07/17/24 00:49 FOX ANTONIO Jul 16, 2024 20:10
[2024-07-16] MEDS: cephalexin 250mg capsule PO ONE (20:15)
[2024-07-16 20:19] VITALS: BP 128/84; PULSE 99; RESP 20; TEMP 98.6; O2SAT 99
== END 2024-07-16 20:19 | disposition home or self-care (01) ==
LOC: ER 18:25
DX: Z32.01 Encounter for pregnancy test, result positive (principal); N39.0 Urinary tract infection, site not specified; J45.909 Unspecified asthma, uncomplicated; F12.90 Cannabis use, unspecified, uncomplicated; F15.90 Other stimulant use, unspecified, uncomplicated; F11.90 Opioid use, unspecified, uncomplicated; Z88.5 Allergy status to narcotic agent
CPT/HCPCS: 81001; 81025; 87088; 99283

== ENCOUNTER 2024-08-21 13:54 | Emergency (ER) | payer MEDICAID ==
[~2024-08-21] VITALS: Ht 157.5 cm; Wt 76.2 kg
[2024-08-21 14:03] VITALS: BP 146/97; PULSE 109; O2SAT 99
--- NOTE | 2024-08-21 15:16 | Physician Documentation ---
History of Present Illness ~ Chief Complaint: Complications Stated Complaint: ANKLE SWELLING Time Seen by MD: 15:02 Primary Medical Doctor: None HPI This 44-year-old female who is reportedly 16 weeks presents complaining of bilateral lower extremity swelling.. Denies any shortness of breath denies any history of heart failure.. Denies any pain and states she is being followed by an school plant consultant Medication Reconciliation Allergies: Coded Allergies: codeine (Verified Allergy, Unknown, 08/21/24) Scheduled Cyclobenzaprine* (Cyclobenzaprine*), 1 TAB PO Q8H Ibuprofen (Ibuprofen), 1 TAB PO Q8H Scheduled PRN Oxycodone HCl/Acetaminophen (Percocet 5-325 mg Tablet), 1 TAB PO TID PRN PRN for fracture Miscellaneous Medications Home Med List (No Home Medications), (Reported) Past Medical History Past Medical History: Asthma, *INFECTIOUS DZ* Past Surgical History: Alcohol Use: None Drug Use: marijuana, methamphetamine, heroin, other Lives In: Home Review of Systems All Other Systems at this time: Reviewed and Negative ROS As stated above in the HPI, otherwise all systems are reviewed and negative. Physical Exam Physical Exam Vital Signs: Temperature: 97.8, Source: Temporal, Heart Rate: 109, Respiratory Rate: 18, BP: 146/97, Pulse Oximetry: 99, Weight: 76.200 Physical Exam General: Alert, no apparent distress. Respiratory: Lungs clear, no respiratory distress. Extremities: Normal range of motion, no deformity. Notable bilateral lower extremity swelling Neurologic: Oriented x4. Psychiatric: Normal mood and affect. Skin: Normal color, warm and dry. No edema, no ecchymosis. Progress Results/Orders Results/Orders Vital Signs 08/21/24 08/21/24 08/21/24 14:03 15:21 15:25 Temp 97.8 97.8 Pulse 109 Resp 18 18 B/P (MAP) 146/97 Pulse Ox 99 Medical Decision Making Findings This patient presents as with a complaint of lower extremity swelling. However I discussed with her at length that this is a normal finding. Also prov ided her potential remedies. Her to follow up with her school plant consultant for further evaluation after reassurance Differential Dx:Considerations: Include: -complete, - incomplete, -inevitable, -missed, -threatened, Abruptio placentae, Active labor-term, Active labor-, Appendicitis, [place] contraction, Cystitis: Acute, Discomfort of , Ectopic , Ectopic preg.-ruptured, demise, Placenta previa, Pyelonephritis: Acute, Ruture of membranes, Third trimester bleeding, UTI, Vaginal bleeding, Vaginal delivery, Other Departure Impression: Primary Impression: Positive test Additional Instructions: Lower extremities swelling is a has a normal finding during . It is often due to the increased fluid demands of the fetus and potentially the increased pressure on the blood vessels contributing to fluid buildup in the lower extremities. As discussed sitting or standing can increase the swelling you may elevate your legs or use compression stockings to help alleviate symptoms Referrals: NO PRIMARY CARE PROVIDER (PCP) Signature Scribe Signature: y Attestation: Scribed for Daniel Swartz Spray Applicator by Daniel Rapp NP . 08/21/24 18:53 DANIEL SWARTZ NP Aug 21, 2024 15:16
[2024-08-21 15:21] VITALS: RESP 18
[2024-08-21 15:25] VITALS: TEMP 97.8
== END 2024-08-21 15:27 | disposition home or self-care (01) ==
LOC: ER 13:55
DX: O26.892 Other specified pregnancy related conditions, second trimester (principal); M79.89 Other specified soft tissue disorders; Z32.01 Encounter for pregnancy test, result positive; F12.90 Cannabis use, unspecified, uncomplicated; F15.90 Other stimulant use, unspecified, uncomplicated; F11.90 Opioid use, unspecified, uncomplicated; J45.909 Unspecified asthma, uncomplicated; Z88.5 Allergy status to narcotic agent; Z79.899 Other long term (current) drug therapy; Z3A.16 16 weeks gestation of pregnancy
CPT/HCPCS: 99282

== ENCOUNTER 2024-08-25 10:03 | Emergency (ER) | payer MEDICAID ==
[~2024-08-25] VITALS: Ht 157.5 cm; Wt 74.2 kg
[2024-08-25 10:07] VITALS: TEMP 96.7
[2024-08-25 11:46] LABS: MEAN PLATELET VOLUME 9.1 FL (7.4-10.4); RED CELL DISTRIBUTION WIDTH 13.8 % (11.5-14.5)
[2024-08-25 12:00] LABS: CREATININE 0.64 MG/DL (0.40-0.90); TOTAL CARBON DIOXIDE 25.1 MMOL/L (24-32); eCRCL 91 ML/MIN; eGFR > 90 ML/MIN
--- NOTE | 2024-08-25 12:31 | Physician Documentation ---
History of Present Illness ~ Chief Complaint: Complications Stated Complaint: ABD PAIN Time Seen by MD: 10:17 Primary Medical Doctor: None Mode of Arrival: Ambulatory HPI p/w abdominal pain. LMP in April. Found out last week she was on home urine test. Has been having cramping abdominal pain for the last 24 hours. Denies contractions LOF VB. Has not had any care. No recent trauma Medication Reconciliation Allergies: Coded Allergies: codeine (Verified Allergy, Unknown, 08/21/24) Scheduled Cyclobenzaprine* (Cyclobenzaprine*), 1 TAB PO Q8H Ibuprofen (Ibuprofen), 1 TAB PO Q8H Scheduled PRN Oxycodone HCl/Acetaminophen (Percocet 5-325 mg Tablet), 1 TAB PO TID PRN PRN for fracture Miscellaneous Medications Home Med List (No Home Medications), (Reported) Past Medical History Past Medical History: Asthma, *INFECTIOUS DZ* Past Surgical History: Alcohol Use: None Drug Use: marijuana, methamphetamine, heroin, other Lives In: Home Review of Systems All Other Systems at this time: Reviewed and Negative Constitutional: Denies: fever Cardiovascular: Denies: chest pain Gastrointestinal: Reports: abdominal pain; Denies: nausea, vomiting, diarrhea, constipated, melena, hematemesis, hematochezia, rectal bleeding Genitourinary: Denies: dysuria Physical Exam Physical Exam Vital Signs: RN Vital Signs have been reviewed: Yes, Temperature: 96.7, Source: Temporal, Heart Rate: 90, Respiratory Rate: 16, BP: 125/79, Pulse Oximetry: 99, Weight: 74.200 Oxygen Flow Rate: 0 Physical Exam well appearing comfortable no distress ctab no murmur abdomen gravid uterus, mild generalized discomfort, no guarding no rebound, Progress Progress Note d/w dr Tina Grant OB who accepts for transfer Results/Orders Results/Orders Orders - ADDIE MAK MD US OB (08/25/24 10:55) Completed Orders - ADDIE MAK MD Cbc/Diff (08/25/24 10:55) CMP (08/25/24 10:55) US OB (08/25/24 10:55) Drug Screen, Urine (08/25/24 10:55) Type And Screen (08/25/24 11:12) Ua W/Microscopic, Cult If Ind (08/25/24 12:15) Vital Signs 08/25/24 08/25/24 08/25/24 08/25/24 10:07 10:25 10:29 11:44 Temp 96.7 Pulse 103 94 90 Resp 17 16 B/P (MAP) 148/86 130/79 (96) 125/79 (94) Pulse Ox 100 99 99 O2 Flow Rate 0 0 08/25/24 08/25/24 13:30 14:24 Pulse 90 90 Resp 16 B/P (MAP) 139/76 (97) 139/76 Pulse Ox 98 98 O2 Flow Rate 0 Laboratory Tests Test 08/25/24 11:12 08/25/24 12:15 White Blood Count 8.1 Red Blood Count 2.98 L Hemoglobin 9.5 L Hematocrit 27.6 L Mean Corpuscular Volume 92.5 Mean Corpuscular Hemoglobin 32.0 H Mean Corpuscular Hemoglobin Concent 34.5 Red Cell Distribution Width 13.8 Platelet Count 274 Mean Platelet Volume 9.1 Neutrophils (%) (Auto) 67.6 Lymphocytes (%) (Auto) 24.5 Monocytes (%) (Auto) 7.0 Eosinophils (%) (Auto) 0.6 Basophils (%) (Auto) 0.3 Neutrophils # (Auto) 5.5 Lymphocytes # (Auto) 2.0 Monocytes # (Auto) 0.6 Eosinophils # (Auto) 0.0 Basophils # (Auto) 0.0 CBC Comment Sodium Level 138 Potassium Level 3.5 Chloride Level 105 Carbon Dioxide Level 25.1 Anion Gap 8 Blood Urea Nitrogen 5 L Creatinine 0.64 Estimated GFR/1.73 m2 > 90 BUN/Creatinine Ratio 7.8 L Glucose Level 98 Calcium Level 8.2 L Total Bilirubin 0.4 Aspartate Amino Transf (AST/SGOT) 63 H Alanine Aminotransferase (ALT/SGPT) 63 Alkaline Phosphatase 215 H Total Protein 5.6 L Albumin 1.9 L Globulin 3.7 Albumin/Globulin Ratio 0.5 L Chemistry Comments Urine Specimen Description Cln catch midstream Urine Color Yellow Urine Clarity Slightly cloudy Urine pH 7.0 Urine Specific [place] 1.015 Urine Protein 30 H Urine Glucose (UA) Negative Urine Ketones Trace H Urine Occult Blood Negative Urine Nitrite Negative Urine Bilirubin Small Urine Urobilinogen 2.0 H Urine Leukocyte Esterase Moderate H Urine RBC None seen Urine WBC 5-10 H Urine Squamous Epithelial Cells Many Urine Bacteria Few Urine Mucus Few Urine Culture Indicated Rejected for culture Volume Urine Centrifuged 10 ml Urine Comment Urine Opiates Screen Negative Urine Methadone Screen Negative Urine Fentanyl Screen Positive H Urine Barbiturates Screen Negative Urine Phencyclidine Screen Negative Urine Amphetamines Screen Positive Urine Benzodiazepines Screen Negative Urine Cocaine Screen Negative Urine Cannabinoids Screen Positive Drug Screen Comment EKG/XRAY/CT/US/VASC/MRI Ultrasound : Impression Independent interpretation of US: intrauterine , 30-32 week, FHR 160 Medical Decision Making Differential Dx:Considerations: Include: -complete, -incom plete, -inevitable, Abruptio placentae Departure Disposition: 02 SHORT TERM [facility]OSPITAL Impression: Primary Impression: Third trimester Additional Impression: Opiate use Referrals: NO PRIMARY CARE PROVIDER (PCP) Signature Scribe Signature: na Attestation: ADDIE Boyce MD Aug 25, 2024 12:31
[2024-08-25 12:37] LABS: LEUKOCYTE ESTERASE ,URINE MODERATE (Neg); NITRITES, URINE NEGATIVE (Neg); OCCULT BLOOD,URINE NEGATIVE (Neg)
[2024-08-25 12:41] LABS: UA COLLECTION TYPE CLN CATCH MIDSTREAM
[2024-08-25 12:43] LABS: MUCUS STRANDS FEW /LPF (Neg); SQUAMOUS EPITHELIAL CELL,UR MANY /LPF (FEW)
[2024-08-25 12:50] LABS: URINE AMPHETAMINE SCREEN POSITIVE (Neg); URINE BARBITUATE SCREEN NEGATIVE (Neg); URINE BENZODIAZEPINES SCREEN NEGATIVE (Neg); URINE CANNABINOID SCREEN POSITIVE (Neg); URINE COCAINE SCREEN NEGATIVE (Neg); URINE METHADONE SCREEN NEGATIVE (Neg); URINE OPIATE SCREEN NEGATIVE (Neg); URINE PHENCYCLIDINE SCREEN NEGATIVE (Neg)
--- NOTE | 2024-08-25 12:53 | RADIOLOGY REPORT ---
LIMITED OB ULTRASOUND > 14 WKS: HISTORY: Abdominal pain TECHNIQUE: Multiple real-time grayscale images of the gravid uterus with duplex Doppler color flow an d M-mode spectral analysis. FINDINGS: IUP single live fetus at 32 weeks 2 days based on composite averages of the BPD, head circumference, abdominal circumference and femur length Estimated weight 2099 grams heart rate 168 beats per minute ROLANDO 18.6 cm Cervix measures 4.0 cm in length Cephalic r Presentation Grade anterior Placenta without previa or abruption. IMPRESSION: 1. IUP single live fetus at 32 weeks 2 days with positive heart rate.
[2024-08-25 13:30] VITALS: RESP 16
[2024-08-25 14:24] VITALS: BP 139/76; PULSE 90; O2SAT 98
== END 2024-08-25 14:27 | disposition short-term general hospital (02) ==
LOC: ER 10:04
DX: O26.893 Other specified pregnancy related conditions, third trimester (principal); O99.323 Drug use complicating pregnancy, third trimester; R10.84 Generalized abdominal pain; F11.90 Opioid use, unspecified, uncomplicated; J45.909 Unspecified asthma, uncomplicated; F12.90 Cannabis use, unspecified, uncomplicated; F15.90 Other stimulant use, unspecified, uncomplicated; Z88.5 Allergy status to narcotic agent; Z79.899 Other long term (current) drug therapy; Z3A.32 32 weeks gestation of pregnancy
CPT/HCPCS: 36415; 76815; 80053; 80305; 81001; 85025; 86885; 86900; 86901; 99285